=== PATIENT | female | born 1970 | race Caucasian/White ===

== ENCOUNTER 2024-01-22 14:00 | Emergency (ER) | payer OTHER, SELFPAY ==
--- NOTE | ~2024-01-22 | XR_ITS ---
XR knee RT min 4V Ordering provider: BRIGETTE White History: . right knee pain NO INJURY HX OF LUPUS . Comparison: None. FINDINGS: BONES: No acute fracture or dislocation. JOINT SPACES: Normal. SOFT TISSUES: Normal. IMPRESSION: No acute osseous abnormality right knee. Reviewed, dictated and finalized at location A.
[2024-01-22 14:19] VITALS: BP 108/59; PULSE 84; RESP 16; TEMP 36.6; O2SAT 99
[2024-01-22] MEDS: KETOROLAC (*BKC) 60 MG/2 ML VIAL IM (15:28)
--- NOTE | 2024-01-22 15:33 | ED.GENADULT ---
HPI - General Adult General Chief complaint: Extremity Injury, Lower Stated complaint: right knee went out on her Source: patient Mode of arrival: ambulatory Limitations: no limitations History of Present Illness HPI narrative: Patient presents for evaluation of right knee pain since yesterday. She indicates she was walking down steps when her knee gave out on her. She did not fall to the floor. She has noted pain in the anterior aspect of the right knee since that time. She rates her pain as 15 on a scale of 1-10. Movement and weight-bearing make her pain worse. She describes the pain as . She has an underlying history of lupus. It sounds like she might be on prednisone on a regular basis. 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 She has not taken any medication to assist with her symptoms other than tylenol. Related Data Home Medications Medication Instructions Recorded Confirmed chlorzoxazone 500 mg tablet 500 mg PO DIRECTED 01/22/24 01/22/24 diclofenac sodium 50 mg 50 mg PO BID 01/22/24 01/22/24 tablet,delayed release lovastatin 40 mg tablet 40 mg PO DAILY 01/22/24 01/22/24 paroxetine HCl 20 mg tablet 20 mg PO DAILY 01/22/24 01/22/24 triamcinolone acetonide 0.1 % 1 applic topical BID 01/22/24 01/22/24 topical ointment Allergies Allergy/AdvReac Type Severity Reaction Status Date / Time No Known Allergies Allergy Verified 01/22/24 15:31 Review of Systems Review of Systems: CONSTITUTIONAL: Denies fever, chills, or sweats. EYES: Denies visual changes, redness, or discharge. ENT: Denies rhinorrhea, congestion, sore throat, or otalgia. CARDIOVASCULAR: Denies chest pain, palpitations, or edema. RESPIRATORY: Denies cough or dyspnea. GASTROINTESTINAL: Denies abdominal pain, nausea, vomiting, or diarrhea. GENITOURINARY: Denies dysuria or hematuria. SKIN: Denies rash or itching. MUSCULOSKELETAL: reports right knee pain. Denies other joint pain. NEUROLOGIC: Denies headache, numbness, dizziness, or weakness. PSYCHIATRIC: Denies anxiety or depression. [facility] Past Medical History Medical History Hyperlipidemia SLE (systemic lupus erythematosus) Surgical History Surgical History No pertinent past surgical history Family History Family History Mother Family history non-contributory Social History Social History Smoking packs per day: 0.5 Smoking cigarettes per day: 10.0 Smoking status: Current every day smoker Tobacco type: cigarettes Substance use: never Gender identity (if verbalized by the patient): Female Sexual Orientation (if Verbalized by the Patient): Straight or Heterosexual Spiritual care concerns: No Exam Narrative: GENERAL: Well-appearing, well-nourished, and in no acute distress. HEAD: Normocephalic, atraumatic. EYES: PERRLA and EOMI. ENT: Nares clear, no rhinorrhea or epistaxis. Mucous membranes moist. Oropharynx without tonsillar hypertrophy exudate or other lesions. Bilateral TMs pearly amaro nonbulging NECK: Supple. No adenopathy or masses. No carotid bruits or JVD CHEST: Clear to auscultation. No respiratory distress. No wheezes rales or rhonchi HEART: Regular rate and rhythm. No murmur heard. Normal peripheral pulses. ABDOMEN: Soft, nontender, nondistended, normal active bowel sounds. EXTREMITIES: Patient refuses to actively flex the right knee. She allows me to put her through passive flexion and extension without difficulty. There is mild tenderness in the anterior aspect of the right knee. There is no crepitus or deformity. No gross swelling. SKIN: Warm, dry, no rash. NEURO: No focal deficits. Alert and oriented x3. PSYCH: Normal mood and affect. Course Course Emergency Course:
== END 2024-01-22 15:32 | disposition home or self-care (01) ==
PROVIDERS: Emergency Provider Nurse Practitioner; PCP Family Medicine
DX: S86.911A Strain of unspecified muscle(s) and tendon(s) at lower leg level, right leg, initial encounter (principal); X50.9XXA Other and unspecified overexertion or strenuous movements or postures, initial encounter; E78.5 Hyperlipidemia, unspecified; M32.9 Systemic lupus erythematosus, unspecified; F17.210 Nicotine dependence, cigarettes, uncomplicated
CPT/HCPCS: 73564; 96372; 99213; G0463; J1885